=== PATIENT | male | born 1990 | race Caucasian/White ===

== ENCOUNTER → 2020-01-15 14:53 | Outpatient (CLI) | payer OTHER, SELFPAY ==
--- NOTE | 2020-01-15 15:01 | CT_ITS ---
PROCEDURE: CT HEAD/BRAIN WO CON CLINICAL INDICATION: HEADACHE R SIDED, BLURRED VISION, NAUSEA Severe headache with blurred vision COMPARISON: No exams were available for comparison TECHNIQUE: Axial images obtained. All CT scans at the facility use one or more dose reduction, viz: automated exposure control, ma/kV adjustment per patient size (including targeted exams where dose is matched to indication, i.e. head), or iterative reconstruction technique. FINDINGS: No midline shift, mass effect, intracranial hemorrhage, hydrocephalus, or extra-axial fluid collection is evident. There is a small area of decreased attenuation the along the anterior horn of the right lateral ventricle. This may only represent partial volume averaging artifact from the ventricle. Cannot exclude the possibility of low-density changes in the periventricular region. As this is asymmetric compared to the left side. MRI may provide further evaluation if clinically warranted. The calvarium has an unremarkable appearance. No mastoid effusion. There is opacification of the frontal sinus on the right. IMPRESSION: 1. No definite acute intracranial findings. 2. Decreased attenuation in the frontal lobe on the right which may be related to partial volume averaging artifact from asymmetry in the anterior horn of the lateral ventricle and could be confirmed with MRI if clinically desired. 3. Right frontal sinus disease Dictated by: Juan Bermudez MD 01/15/2020 15:42 Electronically signed by Juan Bermudez MD in [place] 01/15/2020 15:42
== END ==
PROVIDERS: PCP Internal Medicine; Visit Provider Internal Medicine
DX: R51 Headache (principal); R11.2 Nausea with vomiting, unspecified; H53.8 Other visual disturbances
CPT/HCPCS: 70450

== ENCOUNTER 2023-04-14 14:22 | Emergency (ER) | payer OTHER, SELFPAY ==
[2023-04-14 14:23] VITALS: BP 139/94; PULSE 71; RESP 18; TEMP 36.7; O2SAT 98; BMI 31.1
--- NOTE | 2023-04-14 14:49 | EXP.UTC ---
Discharge Plan Disposition Patient Disposition: Home, Self-Care Condition: Good Prescriptions Prescriptions: New methylprednisolone 4 mg Tablets,Dose Pack 4 mg PO DIRECTED Qty: 21 0RF gentamicin 0.3 % drops 1 drp Eye-Left Q4H 7 Days Qty: 5 0RF No Action fexofenadine [Miguelina] 180 mg Tablet 180 mg PO DAILY Referrals Follow up/Referrals: Harpreet Waterman MD [Primary Care Provider] - See instructions Activity Restrictions/Add. Instructions Additional Instructions/Restrictions: Use the eye drops as directed. Take the oral medication as directed. Follow up with your regular doctor. GO TO THE ER FOR ANY WORSENING SYMPTOMS OR CONCERNS Clinical Impressions Clinical Impression: Conjunctivitis of left eye Instructions Patient Instructions: How to Instill Eye Drops, DI for Conjunctivitis Discharge ED Provider: Haroon Clarke [facility] General Stated complaint: Left eye red and swollen Mode of Arrival: Ambulatory Source of Information: Patient Limitations: No Limitations Time Seen by Provider: 04/14/23 14:49 Description of Symptoms (Recalled from Triage Doc. by RN): swelling to left eye. Pt stated that this started saturday with swelling, blurry vision, itchy, and pressure. HEENT Symptoms (Recalled from RN notes): Yes Resp Symptoms (Recalled from RN notes): No Skin Symptoms (Recalled from RN notes): No MS Symptoms (Recalled from RN notes): No Functional Status (Recalled from RN notes): n/a History of Present Illness Provider Complaint: He states that for the past 2 days he has had swelling and itching around his left eye. That eye has felt irritated. 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 Related Data Home Medications Medication Instructions Recorded Confirmed fexofenadine 180 mg tablet 180 mg PO DAILY . 04/14/23 04/14/23 Previous Rx's Medication Instructions Recorded gentamicin 0.3 % eye drops 1 drp Eye-Left Q4H 7 days #5 mL 04/14/23 methylprednisolone 4 mg tablets in 4 mg PO DIRECTED #21 tabs 04/14/23 a dose pack Allergies Allergy/AdvReac Type Severity Reaction Status Date / Time NO KNOWN ALLERGIES Allergy Unknown Uncoded 04/14/23 14:42 Worker's Comp Is this a Worker's Comp case?: No [facility] Disclaimer: The information contained in this section may have been updated after the patient was seen, as this information can be updated by other users. Social History Smoking Status: Never smoker alcohol intake: current substance use type: denies use current occupational status: employed Travel in the last 8 weeks: None household members: spouse housing: house ROS Obtained: Yes All systems reviewed & no additional complaints except as documented Constitutional Constitutional: Denies chills and Denies fever(s) Eyes Eyes: Reports as per HPI, Denies blurry vision, Denies change in vision, Denies diplopia and Reports eye discharge ENT Ears, Nose, Mouth, and Throat: Denies dizziness, Denies otalgia and Denies sore throat Cardiovascular Cardiovascular: Denies chest pain Respiratory Respiratory: Denies shortness of breath, Denies chest congestion, Denies cough, Denies stridor and Denies wheezing Gastrointestinal Gastrointestingal: Denies nausea or vomiting Musculoskeletal Musculoskeletal: Reports system reviewed and no additional complaints, except as documented and Denies arthralgias Integumentary/Breasts Skin/Breast: Denies rash Neurologic Neurologic: Denies dizziness and Denies paresthesias Allergic/Immunologic Allergic/Immunologic: Denies wheezing Physical Exam General General appearance: alert and in no apparent distress Head Head exam: atraumatic, normocephalic and normal inspection Eye Eye exam: Present PERRL and EOMI Expanded Eye Exam Eyelids: left: erythema and swelling eyelids and right: normal inspection Pupils: Left:
[2023-04-14 15:09] VITALS: BP 139/94; PULSE 71; RESP 18; TEMP 36.7; O2SAT 98
== END 2023-04-14 15:09 | disposition home or self-care (01) ==
PROVIDERS: Emergency Provider Nurse Practitioner Family; PCP Internal Medicine
DX: H10.32 Unspecified acute conjunctivitis, left eye (principal)
CPT/HCPCS: 99204; 99212; G0463

== ENCOUNTER 2023-09-20 14:23 | Outpatient (CLI) | payer OTHER, SELFPAY ==
--- NOTE | 2023-09-20 14:29 | XR_ITS ---
FINAL REPORT CLINICAL HISTORY: EPIGASTRIC PAIN COMPARISON: None FINDINGS: Chest: The heart and mediastinal within normal limits. The lungs are clear. There is no pneumothorax. Osseous structures are unremarkable. Abdomen: AP and upright views of the abdomen were obtained. There is a nonobstructive bowel gas pattern. There is a moderate stool burden. There is no free air. No abnormal calcifications are identified. IMPRESSION: No acute cardiopulmonary process. Nonobstructive bowel gas pattern with moderate stool burden. Reviewed, Interpreted and Dictated by Edison Beaulieu III, MD Transcribed by Heidi Vides Authenticated and [facility]
[2023-09-20 14:47] LABS: Basophils # 0.2 K/mm3 (0-0.2); Basophils % 1.5 % (0.1-2.0); Eosinophils # 0.2 K/mm3 (0.0-0.4); Eosinophils % 1.5 % (0.1-12.0); Hematocrit 46.6 % (42.0-52.0); Hemoglobin 15.4 g/dL (14.1-18.0); Lymphocytes # 3.2 K/mm3 (0.7-4.5); Lymphocytes % 29.8 % (10-50); Mean Corpuscular Hemoglobin 30.4 pg (27.0-31.2); Mean Corpuscular Volume 92.3 fl (80-94); Mean Platelet Volume 8.6 fl (7.4-10.4); Monocytes # 0.6 K/mm3 (0.1-1.0); Monocytes % 5.7 % (1.7-9.3); Neutrophils # 6.7 K/mm3 (1.8-7.8); Neutrophils % 61.6 % (37.0-80.0); Platelet Count 376 K/mm3 (142-424); Red Blood Count 5.05 M/mm3 (4.60-6.20); Red Cell Distribution Width 13.6 % (11.5-17.5); White Blood Count 10.8 K/mm3 (4.8-10.8)
[2023-09-20 15:03] LABS: Chloride 105 mmol/L (98-107); Potassium 3.8 mmoL/L (3.5-5.1); Sodium 139 mmol/L (136-145)
[2023-09-20 15:06] LABS: Alanine Aminotransferase 59 U/L (12-78); Albumin Level 4.2 g/dl (3.5-5.0); Albumin/Globulin Ratio 1.4 (1.1-1.8); Alkaline Phosphatase 93 U/L (38-126); Amylase 90 U/L (30-110); Anion Gap 6.8 mEq/L (5-15); Aspartate Amino Transferase 40 U/L (17-59); Bilirubin,Total 0.5 mg/dl (0.2-1.3); Blood Urea Nitrogen 11 mg/dl (9-20); Calcium 8.8 mg/dl (8.4-10.2); Carbon Dioxide 31 mmol/L (22.0-30.0); Estimated Glomerular Filt Rate 71 ml/min (>60); GFR (African American) 86 ML/MIN (>60); Glucose 74 mg/dl (74-100); Total Protein,Serum 7.2 g/dl (6.3-8.2)
== END 2023-09-20 23:59 ==
PROVIDERS: PCP Internal Medicine; Visit Provider Internal Medicine
DX: R10.13 Epigastric pain (principal)
CPT/HCPCS: 36415; 74021; 80053; 82150; 85025

== ENCOUNTER 2023-12-14 11:34 | Emergency (ER) | payer OTHER, SELFPAY ==
[2023-12-14 11:35] VITALS: BP 112/64; PULSE 74; RESP 16; TEMP 36.7; O2SAT 98; BMI 29.6
--- NOTE | 2023-12-14 11:40 | XR_ITS ---
PROCEDURE INFORMATION: Exam: XR Right Tibia and Fibula Exam date and time: 12/14/2023 11:45 AM Age: 32 years old Clinical indication: Injury or trauma; Other: Laceration; Lower leg; Right; Without foreign body; Additional info: Pain TECHNIQUE: Imaging protocol: Radiologic exam of the right tibia and fibula. Views: 2 views. COMPARISON: No relevant prior studies available. FINDINGS: Bones/joints: No visible fracture or dislocation. Soft tissues: Subtle foci of subcutaneous air in the calf region. No radiopaque foreign body IMPRESSION: 1. No visible fracture or dislocation. 2. Subtle foci of subcutaneous air in the calf region. No radiopaque foreign body
--- NOTE | 2023-12-14 11:40 | XR_ITS ---
PROCEDURE INFORMATION: Exam: XR Right Knee Exam date and time: 12/14/2023 11:46 AM Age: 32 years old Clinical indication: Pain; Knee; Right TECHNIQUE: Imaging protocol: Radiologic exam of the right knee. Views: 3 views. COMPARISON: CR Lower leg R 12/14/2023 11:45 AM FINDINGS: Bones/joints: No visible fracture or dislocation. No joint effusion Soft tissues: Normal. IMPRESSION: No visible fracture or dislocation.
--- NOTE | 2023-12-14 11:40 | XR_ITS ---
PROCEDURE INFORMATION: Exam: XR Right Ankle Exam date and time: 12/14/2023 11:47 AM Age: 32 years old Clinical indication: Pain; Ankle; Right TECHNIQUE: Imaging protocol: Radiologic exam of the right ankle. Views: 1 or 2 views. COMPARISON: CR Lower leg R 12/14/2023 11:45 AM FINDINGS: Bones/joints: No visible fracture or dislocation. The mortise joint space is symmetric. Soft tissues: Normal. IMPRESSION: No visible fracture or dislocation.
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
[2023-12-14] MEDS: ACETAMINOPHEN 500MG TAB 1000 MG PO (12:02)
[2023-12-14] MEDS: IBUPROFEN 400 MG TABLET PO (12:02)
[2023-12-14] MEDS: OXYCODONE 5MG IMMEDIATE RELEASE TABLET 5 MG PO (12:02)
[2023-12-14] MEDS: TET/DIPHTH/PERT-ADULT 0.5ML SYRINGE 0.5 ML IM (12:05)
[2023-12-14] MEDS: LIDOCAINE 2% UROJET 10ML TP (12:08)
[2023-12-14] MEDS: COCAINE 4% TOPICAL SOLN 4ML BOTTLE 1 ML TP (12:09)
[2023-12-14] MEDS: EPINEPHrine 1 MG/ML AMPUL TP (12:09)
[2023-12-14 13:26] VITALS: BP 123/78; PULSE 66; RESP 16; TEMP 36.7; O2SAT 97
== END 2023-12-14 13:26 | disposition home or self-care (01) ==
PROVIDERS: Emergency Provider Emergency Medicine; PCP Internal Medicine
DX: S81.811A Laceration without foreign body, right lower leg, initial encounter (principal); M79.604 Pain in right leg; V48.2XXA Person on outside of car injured in noncollision transport accident in nontraffic accident, initial encounter; Z23 Encounter for immunization
CPT/HCPCS: 12002; 73562; 73590; 73600; 90471; 90715; 99284

== ENCOUNTER 2023-12-16 13:13 | Inpatient (IN) | payer OTHER, SELFPAY ==
[2023-12-16] VITALS (21 sets, daily range): BP systolic 123–142; BP diastolic 60–93; PULSE 61–98; RESP 13–18; TEMP 36.4–37.1; O2SAT 92–100; BMI 30.1; BMI 30.6
--- NOTE | 2023-12-16 13:55 | PC.NURSE ---
Dr Ford and surgery team at the bedside
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
--- NOTE | 2023-12-16 13:57 | PC.NURSE ---
SURGERY AT BEDSIDE, REPORT GIVEN TO Ana WELCH RN
--- NOTE | 2023-12-16 14:14 | P.PNANES_ITS ---
[facility] Disclaimer: The information contained in this section may have been updated after the patient was seen, as this information can be updated by other users. Social History Smoking Status: Never smoker alcohol intake: current alcohol intake frequency: holidays/special occasions only substance use type: denies use current occupational status: employed Travel in the last 8 weeks: None household members: spouse housing: house [facility] Anesthesia Checklist Patient Identification Patient Identification: Arm Band and Verbal (Name & ) Structural Data Admitted From: Home Planned Operative Procedure/s: Fasciotomy R. lower limb Consent for Planned Operative Procedure(s) Verified: Yes Verified Documents: Surgical Consent and History and Physical NPO Status Verified Time NPO: 00:00 Additional verifications Anesthesia Reactions: No Airway Assessment Mallampati Score:: Class II C-Spine Mobility Assessed: Yes TMJ Mobility Assessed: Yes Dentition: Good Dentition Neurological Assessment Level of Consciousness: Awake Hx Seizures: No Numbness or tingling in extremities: No Anesthesia Plan Anesthesia Risk discussed: Yes Anesthesia Plan: Verified ASA Class: II (E) Anesthesia Type: General
[2023-12-16] MEDS: CEFAZOLIN SODIUM 2 GM in 0.9 % SODIUM CHLORIDE 100 ML IV (14:35)
--- NOTE | 2023-12-16 15:04 | HMH.PHAINT1 ---
Pharmacy Intervention Comments: MEDICATION RECONCILIATION COMPLETED ON PATIENT USING EXTERNAL FILL HISTORY FROM PHARMACY. -TYRA GALLEGO, DEQUAND
--- NOTE | 2023-12-16 15:20 | EXP.ANES.I ---
[facility] Anesthesia Record Part I Anesthesia Record I Intake, IV Amount: 300 Hydration: Adequate Estimated blood loss (mL): 5 Urine output (mL): 0 Blood Pressure: 127/76 SaO2: 92 Pulse Rate: 72 Airway Patency: Patent Respiratory Rate: 13 Temperature: 97.5 F Patient is:: Drowsy Stable to PACU at:: 15:15
--- NOTE | 2023-12-16 15:27 | P.OP_ITS ---
Date of procedure: 12/16/23 Pre-op Diagnosis:: Right lower extremity compartment syndrome Post-op Diagnosis:: Same Procedure performed:: Right lower extremity fasciotomies with release of anterior compartment lateral compartment and deep and superficial posterior compartments (46249) Surgeon:: Silvestre Ford DO [employer] REPAIRER:: Tanna Knott Anesthesia: GETA Estimated blood loss (mL): 15 Clinical Note:: 32-year-old male who suffered an unfortunate soft tissue injury with a tractor injury on his right lower extremity on Saturday presented the emergency room with no fractures was discharged home for follow-up after repair of lacerations started developing coolness of the lower extremities some numbness and tingling sensations difficulty with moving his ankle and presented to his primary care doctor this morning around 11 AM. They urgently sent him across the hallway to be evaluated by's. Upon evaluation. He had an impending compartment syndrome of the right lower extremity and was emergently sent to registration to the emergency room for emergency surgery to release the compartments in his leg. Operative findings:: Release of the anterior, lateral, deep and superficial posterior compartments. Operative note:: Patient was identified preoperatively. Right lower extremity marked with yes my initials. Taken the operating room placed upon the operating bed. Right lower extremity prepped and draped normal sterile fashion. Once prepped and draped final operative timeout performed to identify proper patient procedure and extremity. Everyone involved the case agreed. There is no counter indications to beginning. He did receive preoperative antibiotics. Marking pen was used to fabiano plan incision over the anterior lateral aspect of the lower leg for a single incision fasciotomy. Skin knife is used to incise through skin electrocautery was used for hemostasis dissection was taken down to identify the anterior compartment. 15 blade was made to make a small slice the anterior compartment scissors were then used to undermine the anterior compartment was released proximally and distally. Attention was then brought to the lateral compartment. Slit was also made in the fascia of the lateral compartment and released proximally and distally. There was viable muscle in both compartments present. No evidence of necrotic muscle was seen. Then placing a [employer] retractor the lateral compartment was elevated and retracted medially to show the floor of the superficial posterior compartment. An incision was made with a lubna in the posterior compartment and scissors were used to release this within the superficial posterior compartment there was significant release of pressure in this area is also hematoma that was evacuated. Attention was then brought back to the tibial crest where dissection was taken tibial crest and the anterior compartment was then retracted laterally and careful dissection around the tibial crest was taken back to the interosseous membrane between the tibia and fibula to enter into the deep posterior compartment deep close posterior compartment was then entered as well identified by being able to touch the back of the tibial bone. The deep posterior compartment was then released. Once all 4 compartments were released irrigation was performed a wound VAC dressing was selected and the sponge was placed in the wound for temporary wound closure. Patient tolerated procedure well. At the end of release of the 4 compartments the foot did regain its warmth and the pulses and capillary refill were normal in the lower extremity. Condition: stable Disposition: PACU Complications:: None apparent
--- NOTE | 2023-12-16 15:52 | PC.NURSE ---
arrived by stretcher from surgery
[2023-12-16] MEDS: OXYCODONE 5MG IMMEDIATE RELEASE TABLET 5 MG PO (19:34)
[2023-12-16] MEDS: CEFAZOLIN SODIUM 1 GM in 0.9 % SODIUM CHLORIDE 50 ML IV (19:35)
[2023-12-17] VITALS: BP 108/55; PULSE 74; RESP 18; TEMP 37.2; O2SAT 98
[2023-12-17] MEDS: CEFAZOLIN SODIUM 1 GM in 0.9 % SODIUM CHLORIDE 50 ML IV (01:27)
[2023-12-17] MEDS: OXYCODONE 5MG IMMEDIATE RELEASE TABLET 5 MG PO ×3 (01:27→15:16)
[2023-12-17 04:00] VITALS: BP 113/59; PULSE 70; RESP 18; TEMP 36.6; O2SAT 99; BMI 28.8
--- NOTE | 2023-12-17 04:25 | PC.NURSE ---
Pt is alert and oriented x4 and currently tolerating RA well. Pt c/o moderate pain this shift and was treated per sep. Pt has tolerated antibiotic therapy well. pt has had no other acute changes this shift and denies needs.
[2023-12-17 08:00] VITALS: BP 133/70; PULSE 70; RESP 18; TEMP 36.8; O2SAT 98
--- NOTE | 2023-12-17 08:04 | P.PNANES_ITS ---
[facility] Anesthesia Record Part II Anesthesia Record Part II Discharge Time: 15:45 Destination: Second Floor PACU nurse assessment reviewed?: Yes Patient Condition:: Good Anesthesia Complications:: None Swallowing reflex intact?: Yes Airway Patency: Patent Cyanosis?: No Blood Pressure: 124/78 SaO2: 99 Respiratory Rate: 18 Pulse Rate: 88 Temperature: 97.5 F Mental Status: Alert & Oriented Pain level:: 0 Nausea and/or vomitting:: None Intake, IV Amount: 0 Hydration: Adequate
[2023-12-17 08:05] VITALS: BP 124/78; PULSE 88; RESP 18; TEMP 36.4; O2SAT 99
[2023-12-17 11:46] VITALS: BP 121/75; PULSE 82; RESP 18; TEMP 37.1; O2SAT 98
--- NOTE | 2023-12-17 12:31 | EXP.ORTH.PN ---
Subjective *Date: 12/17/23 *Time: 12:31 Interval history: Patient did well overnight. Tolerated the wound VAC without difficulty. Was able to get up to the bathroom and weight-bear on the leg with minimal pain. The sensation of numbness and tingling has resolved. The coldness of his foot also has resolved. Overall feels much better Ortho Exam (Inpt) Vital signs and Labs for Last 24 Hours: Temp Pulse Resp BP Pulse Ox O2 Del Method 98.7 F 82 18 121/75 98 Room Air 12/17/23 11:46 12/17/23 11:46 12/17/23 11:46 12/17/23 11:46 12/17/23 11:46 12/17/23 11:46 I & O for Labs for Last 24 Hours: Intake & Output 12/14/23 12/15/23 12/16/23 12/17/23 23:59 23:59 23:59 23:59 Intake Total 300 / 780 960 / 960 Output Total 0 / 0 Balance 300 / 780 960 / 960 Weight 201 lb 9 oz 190 lb 4.8 oz Constitutional: Present no acute distress Comment:: Right lower extremity: Wound VAC in place with good suction 125 millimeters mercury without leak. Compartments are soft. Able to actively wiggle toes and ankle. Assessment and Plan *Assessment and plan (1) Compartment syndrome of right lower extremity: Problem Comment: Status post 4 compartment fasciotomy Status: Acute Qualifiers: Encounter type: subsequent encounter Qualified Code(s): T79.A21D - Traumatic compartment syndrome of right lower extremity, subsequent encounter Category: Medical Code(s): T79.A21A - Traumatic compartment syndrome of right lower extremity, initial encounter Plan Patient has a wound VAC to his place at the time of surgery. He needs to have outpatient wound VAC for wound care that will allow for healthy primary delayed closure of the fasciotomy sites. Will wait for the arrangement of outpatient wound VAC for which we are having some authorization issues with insurance to allow him to safely go home and also allow him to have delayed primary closure of incision.
--- NOTE | 2023-12-17 14:51 | EXP.HPDC ---
General Admission date:: 12/16/23 Discharge date: 12/17/23 *Admission Date: 12/16/23 *Chief complaint: Right compartment syndrome *History of present illness: 32-year-old male had a crush injury to his leg on Saturday. Presented to the clinic yesterday with impending compartment syndrome. Taken emergently to the operating room for 4 compartment lower extremity release. At the time of evaluation in the clinic he had numbness and tingling in the lower leg and foot he was unable to actively plantarflex and dorsiflex the ankle without significant pain and had a cold foot. [facility] Disclaimer: The information contained in this section may have been updated after the patient was seen, as this information can be updated by other users. Social History Smoking Status: Never smoker alcohol intake: current alcohol intake frequency: holidays/special occasions only substance use type: denies use current occupational status: employed Travel in the last 8 weeks: None household members: spouse housing: house Review of Systems Constitutional Constitutional: Reports system reviewed and no additional complaints, except as documented Eyes Eyes: Reports system reviewed and no additional complaints, except as documented *Respiratory Respiratory: Reports system reviewed and no additional complaints, except as documented *Gastrointestinal Gastrointestinal: Reports system reviewed and no additional complaints, except as documented *Genitourinary Genitourinary: Reports system reviewed and no additional complaints, except as documented *Musculoskeletal Musculoskeletal: Reports as per HPI *Neurologic Neurologic: Reports system reviewed and no additional complaints, except as documented Exam Data for Last 24 hours Vital signs and Labs for Last 24 Hours: Temp Pulse Resp BP Pulse Ox O2 Del Method 98.7 F 82 18 121/75 98 Room Air 12/17/23 11:46 12/17/23 11:46 12/17/23 11:46 12/17/23 11:46 12/17/23 11:46 12/17/23 12:55 I & O for Last 24 hours: Intake & Output 12/14/23 12/15/23 12/16/23 12/17/23 23:59 23:59 23:59 23:59 Intake Total 300 / 780 960 / 960 Output Total 0 / 0 Balance 300 / 780 960 / 960 Weight 201 lb 9 oz 190 lb 4.8 oz *Routine HEENT Exam Head: Present normocephalic Eye: Present EOMI ENT: Present mucous membranes moist *Routine Neck Exam Neck: Present supple *Routine Respiratory Exam Respiratory: Absent accessory muscle use *Routine Cardiovascular Exam Cardiovascular: Present Normal S1 and Normal S2 *Routine Abdominal Exam Abdominal: Present soft *Routine Rectal Exam Rectal:: deferred *Routine Genitalia Exam Genitalia:: deferred *Routine Extremities Exam Comments: Right lower extremity wound VAC in place with suction and 125 mmHg without leak Compartments are soft. Foot is warm normal dorsalis pedis pulses and posterior tibialis pulses. Normal capillary refill *Routine Skin Exam Comments: Surgical wound *Routine Neurological Exam Neurological: Present alert and oriented X3 Meds Home Medications and Allergies Home Medications Medication Instructions Recorded Confirmed Type omeprazole 40 mg capsule,delayed 40 mg PO DAILY 12/16/23 12/16/23 History release cephalexin 500 mg capsule 500 mg PO QID 7 days #28 caps 12/17/23 Rx hydrocodone 5 mg-acetaminophen 325 1 tab PO Q6H PRN post op pain #32 12/17/23 Rx mg tablet tabs New Prescriptions to Start Prescriptions: cephalexin LoganGene Bruce hydrocodone-acetaminophen Silvestre Ford Allergies Allergy/AdvReac Type Severity Reaction Status Date / Time No Known Allergies Allergy Verified 12/16/23 11:40 Hospital Course Hospital Course Hospital Course: Patient was taken to the operating room emergently for compartment release of the right lower extremity. Tolerated procedure well without difficulty. Immediately upon release of the compartments vascular status of the foot improved warmth of the foot return pulses were normal. Wound VAC was placed at the time of surgery to allow for delayed primary closure. He was admitted to the floor for observation compartments. Got significant release relief after fasciotomy. Was able to tolerate walking on the crutches stable for discharge home. After home wound VAC was obtained. Patient will have follow-up in the clinic for wound VAC change. Stable for discharge home. DS: Diagnosis Discharge Diagnosis (1) Compartment syndrome of right lower extremity: Status: Acute Code(s): T79.A21A - Traumatic compartment syndrome of right lower extremity, initial encounter Qualifiers: Encounter type: subsequent encounter Qualified Code(s): T79.A21D - Traumatic compartment syndrome of right lower extremity, subsequent encounter Problem details: Status post 4 compartment fasciotomy Discharge Plan Disposition Patient Disposition: Home, Self-Care Condition: Good Discharge Order Discharge Orders: Discharge Order (Routine); Ordered 12/17/23 Ordered By: Silvestre Ford Follow up Plan Follow up with: Harpreet Waterman MD [Primary Care Provider] - See instructions Silvestre Frod DO [Staff Physician] - 12/31/23 10:00 am Prescriptions/Medication Reconciliation: New hydrocodone-acetaminophen 5-325 mg tablet 1 tab PO Q6H PRN (Reason: post op pain) Qty: 32 0RF cephalexin 500 mg capsule 500 mg PO QID 7 Days Qty: 28 0RF Continued omeprazole 40 mg capsule,delayed release(DR/EC) 40 mg PO DAILY Patient Comments: TAKE ONE CAPSULE BY MOUTH IN THE MORNING FOR STOMACH Problem Reconciliation Problems Reviewed?: Yes Patient Discharge Instructions ACTIVITY: Ambulate as tolerated DIET: advance to your usual diet Additional Instructions: Maintain wound VAC dressing in place. Rest and elevate right lower extremity. Weightbearing as tolerated on crutches. Patient Instructions: DI for Surgical Site Infection, DI for Chronic Compartment Syndrome, Fasciotomy Providers Primary Care Provider: Harpreet Waterman Admit Provider: Silvestre Ford Attending Provider: Silvestre Ford
--- NOTE | 2023-12-18 13:43 | CARE MANAGER ---
Contacted patient related to hospital discharge. He is having pain, but is using his pain medication. He is aware of follow up appointment, but transferred him to ortho because he was accidentally scheduled twice. FAB Aleman
== END 2023-12-17 15:40 | disposition home or self-care (01) | DRG 983 ==
LOC: ER 14:01 → OR 14:04 → 2ND 14:59
PROVIDERS: Admitting Provider Orthopaedic Surgery; Emergency Provider Student in an Organized Health Care Education/Training Program; PCP Internal Medicine; Visit Provider Orthopaedic Surgery
PROC: 0KNS0ZZ Release Right Lower Leg Muscle, Open Approach (ICD-10-PCS; principal; 2023-12-16 14:10)
DX: T79.A21A Traumatic compartment syndrome of right lower extremity, initial encounter (principal); W30.89XA Contact with other specified agricultural machinery, initial encounter; Y92.79 Other farm location as the place of occurrence of the external cause
CPT/HCPCS: 27899; 96374; 99285; J0690; J2405; J3010

== ENCOUNTER 2023-12-23 10:00 | Day surgery (SDC) | payer OTHER, SELFPAY ==
[2023-12-20 10:28] VITALS: BMI 29.6
[2023-12-23] VITALS (10 sets, daily range): BP systolic 132–162; BP diastolic 73–109; PULSE 74–99; RESP 16–19; TEMP 36.3–37; O2SAT 97–99; BMI 29.6
[2023-12-23] MEDS: LACTATED RINGERS 1000ML 1,000 ML 25 ML IV (10:32)
[2023-12-23] MEDS: CEFAZOLIN SODIUM 2 GM in 0.9 % SODIUM CHLORIDE 100 ML IV (13:14)
[2023-12-23] MEDS: BUPIVACAINE 0.5% 30ML VIAL 150 MG (13:15)
--- NOTE | 2023-12-23 13:39 | P.OP_ITS ---
Date of procedure: 12/23/23 Pre-op Diagnosis:: Status post fasciotomy right lower extremity with open wound right lower extremity Post-op Diagnosis:: Same Procedure performed:: Delayed primary closure of complex wound right lower extremity Surgeon:: Silvestre Frod DO MANAGER OF PURCHASING:: Ambika Combs Anesthesia: GETA Estimated blood loss (mL): 25 Operative findings:: No evidence of drainage or infection healthy appearing muscle. Operative note:: Patient is identified preoperatively. Right lower extremity marked with yes my initials. Transferred operative suite placed upon operating bed. General anesthesia ministered airway secured. Right lower extremity wound VAC was removed. Right lower extremity was then prepped and draped with Betadine solution in normal sterile fashion. Once prepped and draped final operative timeout performed to identify proper patient procedure and extremity. Everyone involved the case agreed. No counter indications to beginning. Did receive preoperative antibiotics. Once the wound VAC was removed there was healthy appearing muscle in the bed of the wound using scissors pickups undermining of the subcutaneous layer was performed. And then irrigation with the Pulsavac was performed. There is no evidence of drainage no purulence no evidence of necrotic muscle. The wound 15 cm x 4 cm x 2 cm Wound was then closed from both ends using 0 Vicryl suture deep 2-0 Vicryl suture subcutaneous. Surgical clips in the skin for closure was able to close the entirety of the wound without great tension on the wound. Tourniquet was placed but not inflated throughout the procedure. Dressing was placed from toe to thigh patient taken recovery in stable condition. Condition: stable Disposition: PACU Complications:: None apparent
--- NOTE | 2023-12-23 14:07 | P.PNANES_ITS ---
[facility] Anesthesia Record Part I Anesthesia Record I Intake, IV Amount: 600 Hydration: Adequate Estimated blood loss (mL): 25 Urine output (mL): 0 Blood Products used (#): none Blood Pressure: 142/109 SaO2: 97 Pulse Rate: 86 Airway Patency: Patent Respiratory Rate: 16 Temperature: 97.8 F Patient is:: Awake (Talking) and Stable Stable to PACU at:: 13:45
--- NOTE | 2023-12-23 14:28 | P.PNANES_ITS ---
[facility] Anesthesia Record Part II Anesthesia Record Part II Discharge Time: 14:10 Destination: Surgical Day Care (OP Surgery) PACU nurse assessment reviewed?: Yes Patient Condition:: Good Anesthesia Complications:: None Swallowing reflex intact?: Yes Airway Patency: Patent Cyanosis?: No Blood Pressure: 162/90 SaO2: 99 Respiratory Rate: 19 Pulse Rate: 99 Temperature: 97.8 F Mental Status: Alert & Oriented Pain level:: 0 Nausea and/or vomitting:: None Intake, IV Amount: 600 Hydration: Adequate
== END 2023-12-23 14:42 | disposition home or self-care (01) ==
PROVIDERS: PCP Internal Medicine; Visit Provider Orthopaedic Surgery
PROC: (CPT 13160; principal; 2023-12-23 11:45)
DX: T79.A21A Traumatic compartment syndrome of right lower extremity, initial encounter (principal); W30.89XA Contact with other specified agricultural machinery, initial encounter; Y92.79 Other farm location as the place of occurrence of the external cause
CPT/HCPCS: 13160; 96374; C9144; J0690; J1100; J1885; J2250; J2405; J3010; J7120

== ENCOUNTER 2024-02-26 12:10 | Outpatient (CLI) | payer OTHER, SELFPAY ==
[2024-02-26 14:12] LABS: Alanine Aminotransferase 45 U/L (12-78); Albumin Level 4.4 g/dl (3.5-5.0); Albumin/Globulin Ratio 1.3 (1.1-1.8); Alkaline Phosphatase 101 U/L (38-126); Amylase 86 U/L (30-110); Anion Gap 12.3 mEq/L (5-15); Aspartate Amino Transferase 32 U/L (17-59); Bilirubin,Total 0.7 mg/dl (0.2-1.3); Blood Urea Nitrogen 11 mg/dl (9-20); Calcium 9.6 mg/dl (8.4-10.2); Carbon Dioxide 27 mmol/L (22.0-30.0); Chloride 105 mmol/L (98-107); Estimated Glomerular Filt Rate 98 ml/min (>60); GFR (African American) 119 ML/MIN (>60); Globulin 3.4 g/dL (1.3-3.2); Glucose 85 mg/dl (74-100); Potassium 5.3 mmoL/L (3.5-5.1); Sodium 139 mmol/L (136-145); Total Protein,Serum 7.8 g/dl (6.3-8.2)
[2024-02-26 14:15] LABS: Basophils # 0.1 K/mm3 (0-0.2); Eosinophils # 0.3 K/mm3 (0.0-0.4); Eosinophils % 3.2 % (0.1-12.0); Hematocrit 51.3 % (42.0-52.0); Hemoglobin 16.2 g/dL (14.1-18.0); Lymphocytes # 2.9 K/mm3 (0.7-4.5); Lymphocytes % 37.7 % (10-50); Mean Corpuscular HGB Conc 31.5 g/dL (31.8-35.4); Mean Corpuscular Hemoglobin 30.2 pg (27.0-31.2); Mean Platelet Volume 8.7 fl (7.4-10.4); Monocytes # 0.6 K/mm3 (0.1-1.0); Monocytes % 7.3 % (1.7-9.3); Neutrophils # 3.9 K/mm3 (1.8-7.8); Neutrophils % 50.9 % (37.0-80.0); Platelet Count 381 K/mm3 (142-424); Red Blood Count 5.35 M/mm3 (4.60-6.20); Red Cell Distribution Width 13.9 % (11.5-17.5); White Blood Count 7.7 K/mm3 (4.8-10.8)
== END 2024-02-26 23:59 | disposition home or self-care (01) ==
LOC: LAB.DROPOF 02-27 12:11
PROVIDERS: PCP Internal Medicine; Visit Provider Internal Medicine
DX: R10.13 Epigastric pain (principal); R11.0 Nausea
CPT/HCPCS: 80053; 82150; 85025

== ENCOUNTER 2024-02-26 13:28 | Outpatient (CLI) | payer OTHER, SELFPAY ==
--- NOTE | 2024-02-26 13:28 | US_ITS ---
FINAL REPORT CLINICAL HISTORY: Right upper quadrant and epigastric pain FINDINGS: ULTRASOUND ABDOMINAL LIMITED: Sonographic images of the right upper quadrant were obtained. The pancreas is partially obscured.The liver has an unremarkable appearance. There is trace sludge present in the gallbladder. There is no evidence of biliary ductal dilatation.The common duct measures 3 mm. There is tissue in the gallbladder fossa, that may simply represent adjacent abdominal fat. CT could confirm if clinically indicated. Limited images of the right kidney are unremarkable. IMPRESSION: Trace sludge present in the gallbladder, without evidence of biliary ductal dilatation. Soft tissue in the gallbladder fossa, may simply represent adjacent abdominal fat. CT could confirm if clinically indicated.. Reviewed, Interpreted and Dictated by Aleksandr Mccann MD Transcribed by Naye Delgadillo Authenticated and . [facility]
== END 2024-02-26 23:59 | disposition home or self-care (01) ==
LOC: RAD 13:28
PROVIDERS: PCP Internal Medicine; Visit Provider Internal Medicine
DX: R11.0 Nausea (principal); R10.13 Epigastric pain
CPT/HCPCS: 76705

== ENCOUNTER 2024-03-27 10:00 | Outpatient (RCR) | payer OTHER, SELFPAY ==
--- NOTE | 2024-01-01 11:42 | HMH.PTOPEV ---
PT Outpatient Evaluation Rehab PT Outpatient Evaluation Start: 01/01/24 08:04 Freq: Status: Active Protocol: Document 01/01/24 08:05 ANTHONY (Rec: 01/01/24 11:42 ANTHONY [id number]) E-signed By Lianet Devine, PT Outpatient Therapy Subjective History Subjective History Pt is a 33 y/o male who presents to PT s/p RLE fasciotomies with release of the anterior & lateral compartments and deep & superficial posterior compartments on 12/16/23. Pt also underwent delayed primary closure of fasciotomy wounds on 12/23/23 for removal of a wound vac. Pt reports he saw his surgeon yesterday, states he was told his incision looks good and they would remove the shamar on 01/07/24. Pt reports he has been NWB with bilateral axillary crutches, reports pain/tightness along the lateral mckee with applying weight to the RLE. Pt also reports tightness/pressure of the lateral mckee with ankle DF /PF. Pt reports numbness of the lateral incision as well. Pt also states when he sits with pressure on his posterior thigh his right leg goes to sleep from the thigh to his toes and improves upon standing. Pt reports some swelling of the RLE with prolonged activity. Pt reports he has been performing R ankle ABCs, ankle pumps, ankle circles and gastroc towel stretches as tolerated 1-2x/ day for 1 week. Pt denies further comorbidities to report. 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 Chief Complaint Pain,Swelling Symptom Type Numbness,Tingling Symptoms Relieved By Rest/Positioning,Ice, Prescription Meds Symptoms Aggravated By Standing,Physical Activity, Walking Current Functional Limitations Dressing,Driving,Sleeping, Standing,Squatting,Recreation Activity,Walking,Stairs, Balance Symptom Description Intermittent Level of pain today (0-10) 0 Pain scale - at its best (0-10) 0 Pain scale - at its worst (0-10) 4 Hip/Knee Eval Gait Observation General Gait Pattern Observation Decrease Weight Bear (R), Decrease Stride Lngth (R) Assistive Device Assistive Devices Axillary Crutches Palpation Tenderness right Knee Palpation Finding Tenderness Knee Palpation Overall Comment lateral mckee TTP 3/4 MMT Hip Flexion Strength Grade 5 Normal Hip Abduction Strength Grade 4 Good Hip Adduction Strength Grade 4 Good Hip Extension Strength Grade 4 Good Knee Extension Strength Grade 4- Good- Knee Flexion Strength Grade 4 Good ROM Knee Extension Active Range of Motion ( 0 degrees) Knee Flexion Active Range of Motion ( 120 degrees) Ankle/Foot Eval Palpation Tenderness Ankle/Foot Palpation Overall Comment no TTP of the ankle noted ROM Ankle/Foot Dorsiflexion w/Knee Extended 2 Active Range Motion (degrees) Ankle/Foot Plantar Flexion Active Range 38 of Motion (degrees) Ankle/Foot Eversion Active Range of 7 Motion (degrees) Ankle/Foot Inversion Active Range of 18 Motion (degrees) MMT Ankle Dorsiflexion Strength Grade 3 Fair Ankle Plantarflexion Strength Grade 3+ Fair+ Foot Eversion Strength Grade 4- Good- Foot Inversion Strength Grade 4- Good- Lower Extremity Functional Index Activities Today, do you or would you have any difficulty at all with: a.Any of your usual work, housework or Quite a bit of difficulty school activities b. Your usual hobbies, recreational or Quite a bit of difficulty sporting activities c. Getting into or out of the bath A little bit of difficulty d. Walking between rooms A little bit of difficulty e. Putting on your shoes or socks Moderate difficulty f. Squatting Extreme difficulty or unable to perform activity g. Lifting an object, like a bag of No difficulty groceries from the floor h. Performing light activities around Moderate difficulty your home i. Performing heavy activities around Quite a bit of difficulty your home j. Getting into or out of a car A little bit of difficulty k. Walking 2 blocks Extreme difficulty or unable to perform activity l. Walking a mile Extreme difficulty or unable to perform activity m. Going up or down 10 stairs (about 1 Extreme difficulty or unable flight of stairs) to perform activity n. Standing for 1 hour Extreme difficulty or unable to perform activity o. Sitting for 1 hour No difficulty p. Running on even ground Extreme difficulty or unable to perform activity q. Running on uneven ground Extreme difficulty or unable to perform activity r. Making sharp turns while running fast Extreme difficulty or unable to perform activity s. Hopping A little bit of difficulty t. Rolling over in bed No difficulty LEFI Score Lower Extremity Functional Index Score 31 Outpatient Therapy Assessment Impairments Problems/Impairmments Palpation Tenderness,Impaired Range of Motion,Impaired Strength,Impaired Gait Pattern ,Impaired Walking,Impaired Standing,Impaired Lifting, Impaired Dressing,Impaired Household Care,Impaired Stair Climbing,Impaired Incline Stepping,Impaired Stepping on Uneven Surface,Impaired Squatting,Impaired Recreational Activities, Impaired Running,Impaired Jumping,Impaired Work Activities,Impaired Balance, Increased Edema,Lymphedema Present,Wound Care Needs, Subjective C/O Pain,Impaired Self Care/Self Management Prognosis Rehab Potential Good Clinical Impression Consistent with Diagnosis Yes Short Term Goals Number of Weeks 3 Increase Range of Motion Yes: Improve R ankle AROM DF to at least 5 Improve Gait Pattern with Assistive Yes: Demonstrate ability to Device perform PWB-FWB on RLE with LRD Improve Ability to Dress Self Yes: don R shoe/socks I to decrease burden of care Improve LEFI Score Yes: Improve score to at least 41/80 to improve overall QOL Improve Self Care/Self Management Yes Patient to be Ind w/ HEP Yes Cis Coordinator Goals Number of Weeks 6 Increase Range of Motion Yes: Improve R ankle AROM to WNL Increase Strength Yes: Improve RLE MMT to 4+-5/5 grossly to assist with function Improve Gait Pattern without Assistive Yes: demonstrate proper gait Device mechanics wihtout AD to decrease fall risk Improve Ability to Climb Stairs Yes: 1 flight reciprocally with pain 0-2//10 to assist with household navigation Improve Tolerance to Work Activities Yes Improve Balance Yes: perform R SLS for 30 without LOB to dec fall risk Improve LEFI Score Yes: Improve score to at least 60/80 to improve overall QOL Decrease Edema Yes Decrease Subjective C/O Pain Yes: Improve pain at worst to 0-2/10 to improve overall QOL Patient to be Ind w/ Advanced HEP Yes Outpatient Therapy Plan of Care Treatment Plan May Include Therapeutic Exercise Including Home Yes Exercise Program Manual Therapy Techniques Yes Neuromuscular Re-education Yes Therapeutic Activities to Return to Yes Previous Functional/Work Level Gait Training Yes ADL/Self Care Education Yes Mechanical Traction Yes Dry Needling Yes Thermal Modalities Yes Electrical Stimulation Yes Ultrasound/Phonophoresis Yes Iontophoresis Yes Orthotics/Bracing/Splinting Yes Vasopneumatic Compression Pump Yes Massage Yes Manual Lymphatic Drainage Yes Wound Care Yes Eval/Re-Eval Yes Frequency Times per week 2 Duration Number of Weeks 4-6 Addendums This patient is a candidate for social No or vocational rehab? Patient/Guardian verbally acknowledges Yes understanding of treatment program and consents to further treatment? Patient/Guardian verbally acknowledges Yes understanding of diagnosis, prognosis and goals for treatment? Eval Complexity PT Charges 03142 - Low Complexity Shoulder/Elbow Eval Shoulder Objective Measurements Elbow Objective Measurements PHYSICIAN CERTIFICATION: I certify the specified therapy services for Carson Hare are required, authorized, and reviewed every 30 days.
--- NOTE | 2024-01-27 15:00 | [facility].RHREAS ---
Rehab Reassessment Rehab OP Re-assessment Start: 01/01/24 08:04 Freq: Status: Active Protocol: Document 01/27/24 14:19 LILLYLO (Rec: 01/27/24 15:00 ANTHONY [id number]) E-signed By Lianet Devine PT Lower Extremity Functional Index Activities Today, do you or would you have any difficulty at all with: a.Any of your usual work, housework or Moderate difficulty school activities b. Your usual hobbies, recreational or Moderate difficulty sporting activities c. Getting into or out of the bath No difficulty d. Walking between rooms A little bit of difficulty e. Putting on your shoes or socks No difficulty f. Squatting Moderate difficulty g. Lifting an object, like a bag of No difficulty groceries from the floor h. Performing light activities around A little bit of difficulty your home i. Performing heavy activities around Moderate difficulty your home j. Getting into or out of a car A little bit of difficulty k. Walking 2 blocks Moderate difficulty l. Walking a mile Quite a bit of difficulty m. Going up or down 10 stairs (about 1 Quite a bit of difficulty flight of stairs) n. Standing for 1 hour A little bit of difficulty o. Sitting for 1 hour No difficulty p. Running on even ground Quite a bit of difficulty q. Running on uneven ground Quite a bit of difficulty r. Making sharp turns while running fast Quite a bit of difficulty s. Hopping Moderate difficulty t. Rolling over in bed No difficulty LEFI Score Lower Extremity Functional Index Score 49 Rehab Re-assessment Subjective Subjective Pt reports he feels 80% improved since starting PT. Pt reports he has been ambulating without crutches for ~1.5 weeks. Pt reports initial pain in his toes with FWB on the RLE that has since improved with stretches. Pt reports he does still have pain/difficulty with increased physical activity, stair climbing and squatting. Pt reports tightness/pressure sensation of the right anterolateral and posterior leg and swelling with such activities. Pt reports pain at worst as 3/10 on VAS. Pt reports compliance with HEP. Pt states he has not returned to work yet. 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 Objective Objective Notes Observation: Incision well healing without signs of infection Gait: mildly antalgic on RLE without assistive device R ankle AROM: 10 DF, 40 PF, 22 Inv, 9 Eversion RLE MMT: hip flex 4+/5, hip abd 4+/5, hip ext 4+/5, ankle DF 4/5, ankle PF 4-/5, ankle Inv. 4/5, ankle Ev. 4/5 R ankle edema: figure 8 59 cm Assessment Progress Assessment Progressing as Expected Assessment Notes Pt has attended 7 PT visits consisting of aerobic exercise , R ankle mobility, LE stretching/strengthening, balance/proprioception and gait training wtih good tolerance. Pt demonstrated improved R ankle AROM, strength, edema, LEFS score and gait this date compared to the initial evaluation. Pt continues to demonstrate mildly antlagic gait and muscular fatigue with exercises. Pt also continues to report pain/difficulty with functional activities such as prolonged walking, stair climbing and squatting. Pt would continue to benefit from skilled PT to further improve RLE AROM, strength, balance/ proprioception and functional activity tolerance to assist with return to PLOF and occupation. Patient goals met ST/6 LT/10 Goals Not Met AROM, strength, gait, stairs, work tolerance, p! at worst, LEFS score Revised Goals n/a Plan Plan Continue initial POC Frequency of Therapy 2x/week Duration of therapy 4 more weeks Time and Billing Re-Eval Time 15 Re-Eval Billing Units 1 PHYSICIAN CERTIFICATION: I certify the specified therapy services for Carson Hare are required, authorized, and reviewed every 30 days.
--- NOTE | 2024-02-27 16:20 | [facility].RHREAS ---
Rehab Reassessment Rehab OP Re-assessment Start: 01/01/24 08:04 Freq: Status: Active Protocol: Document 02/27/24 15:00 LILLYLO (Rec: 02/27/24 16:20 ANTHONY [id number]) E-signed By Lianet Devine PT Lower Extremity Functional Index Activities Today, do you or would you have any difficulty at all with: a.Any of your usual work, housework or A little bit of difficulty school activities b. Your usual hobbies, recreational or A little bit of difficulty sporting activities c. Getting into or out of the bath No difficulty d. Walking between rooms No difficulty e. Putting on your shoes or socks No difficulty f. Squatting A little bit of difficulty g. Lifting an object, like a bag of No difficulty groceries from the floor h. Performing light activities around A little bit of difficulty your home i. Performing heavy activities around A little bit of difficulty your home j. Getting into or out of a car No difficulty k. Walking 2 blocks No difficulty l. Walking a mile No difficulty m. Going up or down 10 stairs (about 1 A little bit of difficulty flight of stairs) n. Standing for 1 hour No difficulty o. Sitting for 1 hour No difficulty p. Running on even ground A little bit of difficulty q. Running on uneven ground A little bit of difficulty r. Making sharp turns while running fast A little bit of difficulty s. Hopping A little bit of difficulty t. Rolling over in bed No difficulty LEFI Score Lower Extremity Functional Index Score 70 Rehab Re-assessment Subjective Subjective Pt reports he feels 90% improved since starting PT. Pt reports he feels that his balance, strength and endurance have improved overall. Pt reports he still has some bad days with pain 4/ 10 at worst when he over does it. Pt reports he has attempted jogging once and jumping off a wagon resulting in pain/tightness. Pt reports he was unable to attend PT for 7 days which resulted in a locking sensation of the R lower leg that improved once he resumed PT. Pt reports compliance with HEP. 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 Objective Objective Notes Gait: proper gait mechanics without AD R ankle AROM: 12 DF, 45 PF, 25 Inv, 14 Eversion RLE MMT: ankle DF 4+/5, ankle PF 4+/5, ankle Inv. 5/5, ankle Ev. 4+/5 Assessment Progress Assessment Progressing as Expected Assessment Notes Pt has attended 15 PT visits consisting of aerobic exercise , ankle mobility, LE stretching/strengthening, gait training, balance/ proprioception training and HEP with good tolerance. Pt demonstrated improved LEFS score, gait, ankle AROM, strength and balance this date compared to the previous reassessment. Pt reports continued pain/tightness of the RLE with endurance, running and impact activities. Overall, the pt would continue to benefit from skilled PT to assist with above activities to return to PLOF. Patient goals met LT/10 Goals Not Met work activities, p! at worst Revised Goals n/a Plan Plan Continue initial POC. Progress exercises to assist with jogging/running and impact activities. Frequency of Therapy 1x/week Duration of therapy 4 more weeks Time and Billing Re-Eval Time 10 Re-Eval Billing Units 1 PHYSICIAN CERTIFICATION: I certify the specified therapy services for Carson Hare are required, authorized, and reviewed every 30 days.
== END 2024-03-27 10:05 | disposition home or self-care (01) ==
LOC: PT 10:00
PROVIDERS: Visit Provider Orthopaedic Surgery
DX: M79.661 Pain in right lower leg (principal); T79.A21A Traumatic compartment syndrome of right lower extremity, initial encounter
CPT/HCPCS: 97014; 97016; 97110; 97112; 97163; 97164; 97530; G0283